=== PATIENT | female | born 1930 | race Caucasian/White ===

== ENCOUNTER 2016-08-03 16:33 | Emergency (ER) | payer MEDICARE, OTHER ==
[~2016-08-03] VITALS: Ht 170.2 cm; Wt 71.8 kg
--- NOTE | 2016-08-03 16:54 | NUR ---
This nurse speaks with Dr. Prieto (baton twirler for Dr. Mckeon.) Order to release body.
--- NOTE | 2016-08-03 17:09 | NUR ---
This nurse calls [facility] and speaks with Evette. Busy at this time, will call back.
--- NOTE | 2016-08-03 17:17 | NUR ---
Evette calls back with [facility] - patient not a candidate for donation.
--- NOTE | 2016-08-03 17:19 | NUR ---
This nurse calls [facility] in [place]. Staff will come to warp picker the body.
--- NOTE | 2016-08-03 17:37 | NUR ---
Three rings left on patient, glasses taken by daughter.
== END 2016-08-03 18:42 | disposition expired ==
LOC: ED 16:47
DX: I46.9 Cardiac arrest, cause unspecified (principal); Z66 Do not resuscitate
CPT/HCPCS: 92950; 99282

== ENCOUNTER → 2016-08-03 | Outpatient (CLI) | payer MEDICARE, OTHER, BC | LOC: ED 16:30 → MERGE 16:30 | PROVIDERS: ATTEND Family Medicine | DX: R41.82 Altered mental status, unspecified (principal) ==